=== PATIENT | male | born 1975 | race Two or more races ===

== ENCOUNTER 2020-03-04 07:43 | Outpatient (CLI) | payer OTHER | END 2020-03-04 07:46 | disposition home or self-care (01) | LOC: RX STUDY 07:43 | PROVIDERS: ATTEND Colon & Rectal Surgery | DX: K57.20 Diverticulitis of large intestine with perforation and abscess without bleeding (principal) ==

== ENCOUNTER 2020-04-14 08:15 | Inpatient (IN) | payer OTHER ==
[~2020-04-14] VITALS: Ht 167.6 cm; Wt 90.7 kg
[2020-04-14] MEDS ORDERED: SYNTHROID75 MCG PO (10:34)
== END 2020-04-24 14:58 | disposition home or self-care (01) | DRG 330 ==
LOC: ADM 08:15 → EDSTATUS 08:15 → SURH 04-21 08:15 → O/R 04-21 10:30 → SURH 04-21 13:00
PROVIDERS: ADMIT Colon & Rectal Surgery; ATTEND Colon & Rectal Surgery
PROC: 0DQE4ZZ Repair Large Intestine, Percutaneous Endoscopic Approach (ICD-10-PCS; 2020-04-21)
PROC: 0WQF4ZZ Repair Abdominal Wall, Percutaneous Endoscopic Approach (ICD-10-PCS; 2020-04-21)
PROC: 0DJD8ZZ Inspection of Lower Intestinal Tract, Via Natural or Artificial Opening Endoscopic (ICD-10-PCS; 2020-04-21)
PROC: 0DTN4ZZ Resection of Sigmoid Colon, Percutaneous Endoscopic Approach (ICD-10-PCS; principal; 2020-04-21 13:00)
DX: K57.33 Diverticulitis of large intestine without perforation or abscess with bleeding (principal); K43.0 Incisional hernia with obstruction, without gangrene; Z20.828 Contact with and (suspected) exposure to other viral communicable diseases; Z43.3 Encounter for attention to colostomy

== ENCOUNTER 2024-06-24 07:24 | Outpatient (CLI) | payer OTHER ==
[~2024-06-24 07:24] MED LIST: SYNTHROID75 MCG PO
== END 2024-06-24 07:25 | disposition home or self-care (01) ==
LOC: NUCLEAR 07:24
DX: I20.9 Angina pectoris, unspecified (principal); R07.9 Chest pain, unspecified